=== PATIENT | male | born 1955 | race Caucasian/White ===

== ENCOUNTER 2022-12-11 12:09 | Emergency (ER) | payer OTHER ==
[2022-12-11 12:24] VITALS: TEMP 97.8; BMI 26.6
[2022-12-11 13:25] LABS: BASO % 0.6 % (0-2.0); EOS % 1.4 % (0-4.5); HEMATOCRIT 44.8 % (35.4-49); HEMOGLOBIN 15.3 GM/dL (11.7-16.9); LYMPH % 9.4 % (8-40); MCH 33.3 pg (25.7-33.7); MCHC 34.2 g/dl (32.0-35.9); MEAN CELL VOLUME 97.4 fl (80-96); MEAN PLT VOLUME 9.8 fl (7.5-11.1); NEUT % 80.6 % (42.8-82.8); PLATELET COUNT 246 10^3/uL (134-434); RBC 4.59 M/mm3 (4.00-5.60); RDW 12.9 % (11.9-15.9); WHITE BLOOD COUNT 7.9 K/mm3 (4.0-10.0)
[2022-12-11 13:33] LABS: INR 1.08 (0.83-1.09); PROTHROMBIN TIME (PATIENT) 12.4 SEC (9.7-13.0)
[2022-12-11 13:35] LABS: ACTIVATED PTT 30.3 SECONDS (25.2-36.5)
[2022-12-11 13:42] LABS: CALCIUM 9.3 mg/dL (8.5-10.1)
[2022-12-11 13:43] LABS: ALBUMIN 3.7 g/dl (3.4-5.0); BLOOD UREA NITROGEN 15.7 mg/dL (7-18); MAGNESIUM 2.3 mg/dL (1.8-2.4)
[2022-12-11 13:46] LABS: CREATININE 1.2 mg/dL (0.55-1.3)
[2022-12-11 13:48] LABS: BILIRUBIN,TOTAL 0.4 mg/dL (0.2-1)
[2022-12-11 14:53] VITALS: BP 125/77; PULSE 84; RESP 20
== END 2022-12-11 14:52 | disposition home or self-care (01) ==
LOC: JER 12:09
DX: L02.212 Cutaneous abscess of back [any part, except buttock and flank] (principal); L02.419 Cutaneous abscess of limb, unspecified
CPT/HCPCS: 0241U-QW; 36415; 80053; 83735; 85025; 85610; 85730; 86850; 86900; 86901; 87040; 87070; 87186; 87205; 93005; 93010; 99281-25